=== PATIENT | female | born 1980 | race Caucasian/White ===

== ENCOUNTER 2020-01-01 09:19 | Emergency (ER) | payer BC, OTHER ==
[~2020-01-01] VITALS: Ht 160 cm; Wt 60.6 kg
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
--- NOTE | 2020-01-01 10:30 | NUR ---
STRAIGHT CATH COMPLETED AND SENT TO LAB
[2020-01-01 10:48] LABS: MICROSCOPIC NOT IND
[2020-01-01 10:53] LABS: CULTURE INDICATED? NO
[2020-01-01 12:06] VITALS: BP 101/60
== END 2020-01-01 12:09 | disposition home or self-care (01) ==
LOC: ED 11:45
DX: O20.0 Threatened abortion (principal); Z3A.13 13 weeks gestation of pregnancy
CPT/HCPCS: 36415; 76801; 81003; 84702; 86901; 99284

== ENCOUNTER 2020-04-22 07:32 | Outpatient (CLI) | payer BC ==
[~2020-04-22] VITALS: Ht 162.6 cm; Wt 70.0 kg
[2020-04-22 08:43] LABS: MICROSCOPIC INDICATED
[2020-04-22 09:12] VITALS: BP 118/60
== END 2020-04-22 09:10 | disposition home or self-care (01) ==
LOC: LDOP 07:32
PROVIDERS: ATTEND Obstetrics & Gynecology
DX: O26.893 Other specified pregnancy related conditions, third trimester (principal); R10.9 Unspecified abdominal pain; M54.5 Low back pain; Z3A.29 29 weeks gestation of pregnancy
CPT/HCPCS: 59025; 81001; 87086; 99211; G0463

== ENCOUNTER 2020-06-19 08:54 | Outpatient (CLI) | payer BC ==
[~2020-06-19] VITALS: Ht 160 cm; Wt 76.3 kg
[2020-06-19 08:56] VITALS: BP 118/60
== END 2020-06-19 09:40 | disposition home or self-care (01) ==
LOC: LDOP 08:54
PROVIDERS: ATTEND Obstetrics & Gynecology
DX: O09.523 Supervision of elderly multigravida, third trimester (principal); Z3A.37 37 weeks gestation of pregnancy
CPT/HCPCS: 59025

== ENCOUNTER 2020-06-25 21:01 | Outpatient (CLI) | payer BC ==
[~2020-06-25] VITALS: Ht 160 cm; Wt 75.0 kg
[2020-06-25 21:10] VITALS: BP 114/60
== END 2020-06-25 22:20 | disposition home or self-care (01) ==
LOC: LDOP 21:01
PROVIDERS: ATTEND Obstetrics & Gynecology
DX: O36.8130 Decreased fetal movements, third trimester, not applicable or unspecified (principal); Z3A.38 38 weeks gestation of pregnancy
CPT/HCPCS: 59025

== ENCOUNTER 2020-06-26 20:27 | Inpatient (IN) | payer BC ==
[~2020-06-26] VITALS: Ht 160 cm; Wt 75.0 kg
[2020-06-26] MEDS: LACTATED RINGERS 1,000 ML IV SCH (20:55)
[2020-06-26] MEDS ORDERED: OXYTOCIN 30U/ 0.9% NaCL 500ML 500 ML IV ONE (20:55)
[2020-06-26] MEDS ORDERED: OXYTOCIN 30U/ 0.9% NaCL 500ML 500 ML IV PRN (20:55)
[2020-06-26] MEDS ORDERED: D5%-LACTATED RINGERS 1,000 ML IV SCH (20:55)
[2020-06-26] MEDS ORDERED: TERBUTALINE 1 MG/ML, 1ML IVPush PRN (21:00)
[2020-06-26] MEDS ORDERED: SODIUM CITRATE/CITRIC ACID 30 ML UDC PO PRN (21:00)
[2020-06-26] MEDS ORDERED: TERBUTALINE 1 MG/ML, 1ML SQ PRN (21:00)
[2020-06-26] MEDS ORDERED: CALCIUM CARBONATE 500 MG TAB.CHEW PO PRN (21:00)
[2020-06-26] MEDS ORDERED: FENTANYL PF 100 MCG/2ML IV PRN (21:00)
[2020-06-26] MEDS ORDERED: ONDANSETRON 2MG/ML, 2ML IVPush PRN (21:00)
[2020-06-26] MEDS ORDERED: METOCLOPRAMIDE 5 MG/ML, 2ML IVPush PRN (21:00)
[2020-06-26 21:15] VITALS: BP 114/59
[2020-06-26] MEDS ORDERED: NEWBORN KIT ONE (21:26)
[2020-06-26] MEDS ORDERED: LIDOCAINE 1%, 20ML ONE (21:26)
[2020-06-26] MEDS ORDERED: OXYTOCIN 30U/ 0.9% NaCL 500ML 500 ML ONE (21:27)
[2020-06-26] MEDS ORDERED: MISOPROSTOL 200 MCG TABLET ONE (21:27)
[2020-06-26] MEDS ORDERED: PLEASE ENTER HEIGHT AND WEIGHT MC SCH (21:30)
[2020-06-26 21:34] LABS: BASOPHILS # (AUTO) 0.04 x10^3/uL (0-0.1); BASOPHILS % (AUTO) 1 % (0-1); EOSINOPHILS # (AUTO) 0.08 x10^3/uL (0-0.4); EOSINOPHILS % (AUTO) 1 % (1-7); LYMPHOCYTES # (AUTO) 1.19 x10^3/uL (1-3.4); LYMPHOCYTES % (AUTO) 14 % (22-44); MD NO; MEAN CORPUSCULAR HEMOGLOBIN 31.7 pg (27.0-34.8); MEAN CORPUSCULAR HGB CONC 34.3 g/dL (32.4-35.8); MEAN CORPUSCULAR VOLUME 92.4 fL (80-100); MEAN PLATELET VOLUME 8.3 fL (7.4-10.4); MONOCYTES # (AUTO) 0.85 x10^3/uL (0.2-0.8); MONOCYTES % (AUTO) 10 % (2-9); NEUTROPHILS # (AUTO) 6.25 x10^3/uL (1.8-6.8); NEUTROPHILS % (AUTO) 74 % (42-75); PLATELET COUNT 267 x10^3/uL (130-400); RED BLOOD COUNT 4.12 x10^6/uL (3.82-5.3); RED CELL DISTRIBUTION WIDTH 14.1 % (9.6-15.2)
[2020-06-27] MEDS ORDERED: FENTANYL PF 100 MCG/2ML ONE ×3 (00:20→02:45)
[2020-06-27] MEDS ORDERED: CALCIUM CARBONATE 500 MG TAB.CHEW ONE (00:20)
[2020-06-27] MEDS: FENTANYL PF 100 MCG/2ML IVPush PRN ×3 (00:23→02:49)
[2020-06-27] MEDS: LACTATED RINGERS 1,000 ML IV SCH (01:50)
[2020-06-27] MEDS ORDERED: FENTANYL/BUPIV./NS/PF 250 ML EPIDCONT ONE (02:45)
[2020-06-27] MEDS ORDERED: EPHEDRINE 50 MG/ML, 1ML IVPush PRN (03:30)
[2020-06-27] MEDS ORDERED: LACTATED RINGERS 1,000 ML IVBOLUS PRN (03:30)
[2020-06-27] MEDS ORDERED: FENTANYL/BUPIV./NS/PF 250 ML EPIDCONT SCH (03:30)
[2020-06-27] MEDS ORDERED: LACTATED RINGERS 1,000 ML IV SCH (03:30)
[2020-06-27] MEDS ORDERED: OXYTOCIN 30U/ 0.9% NaCL 500ML 500 ML IV SCH (05:03)
[2020-06-27] MEDS ORDERED: RHOGAM FROM BLOOD BANK 1 NOTE EA IM/IV ONE (05:30)
[2020-06-27] MEDS ORDERED: MISOPROSTOL 200 MCG TABLET PR PRN (05:30)
[2020-06-27] MEDS ORDERED: BISACODYL 10 MG SUPP PR PRN (05:30)
[2020-06-27] MEDS ORDERED: ONDANSETRON 2MG/ML, 2ML IV PRN (05:30)
[2020-06-27] MEDS ORDERED: ACETAMINOPHEN 325 MG TABLET PO PRN (05:30)
[2020-06-27] MEDS ORDERED: HYDROcodone/APAP 5/325 TABLET PO PRN (05:30)
[2020-06-27] MEDS ORDERED: OXYTOCIN 30U/ 0.9% NaCL 500ML 500 ML ONE (05:48)
[2020-06-27] MEDS ORDERED: IBUPROFEN 600 MG TABLET ONE (07:09)
[2020-06-27] MEDS ORDERED: OXYcodone/APAP 5/325MG TABLET ONE (07:09)
[2020-06-27] MEDS ORDERED: IBUPROFEN 800 MG TABLET ONE (07:12)
[2020-06-27] MEDS: IBUPROFEN 800 MG TABLET PO PRN ×2 (07:13→15:43)
[2020-06-27] MEDS: OXYcodone/APAP 5/325MG TABLET PO PRN ×7 (07:14→20:15)
[2020-06-27 07:40] VITALS: BP 101/4
[2020-06-27] MEDS: DOCUSATE 100 MG CAPSULE PO PRN ×2 (08:24→20:15)
[2020-06-27] MEDS: PRENATAL VIT/IRON/FA 1 EACH TABLET PO SCH (08:24)
[2020-06-27 11:55] VITALS: BP 95/58
[2020-06-27 12:22] LABS: BASOPHILS # (AUTO) 0.01 x10^3/uL (0-0.1); BASOPHILS % (AUTO) 0 % (0-1); EOSINOPHILS # (AUTO) 0.02 x10^3/uL (0-0.4); EOSINOPHILS % (AUTO) 0 % (1-7); LYMPHOCYTES # (AUTO) 0.72 x10^3/uL (1-3.4); LYMPHOCYTES % (AUTO) 7 % (22-44); MD NO; MEAN CORPUSCULAR HEMOGLOBIN 31.5 pg (27.0-34.8); MEAN CORPUSCULAR HGB CONC 33.7 g/dL (32.4-35.8); MEAN CORPUSCULAR VOLUME 93.4 fL (80-100); MEAN PLATELET VOLUME 8.4 fL (7.4-10.4); MONOCYTES # (AUTO) 0.49 x10^3/uL (0.2-0.8); MONOCYTES % (AUTO) 5 % (2-9); NEUTROPHILS # (AUTO) 9.71 x10^3/uL (1.8-6.8); NEUTROPHILS % (AUTO) 89 % (42-75); PLATELET COUNT 200 x10^3/uL (130-400); RED BLOOD COUNT 3.69 x10^6/uL (3.82-5.3); RED CELL DISTRIBUTION WIDTH 14.2 % (9.6-15.2)
[2020-06-27 15:45] VITALS: BP 103/62
[2020-06-27 20:00] VITALS: BP 109/73
[2020-06-28] VITALS: BP 106/69
[2020-06-28] MEDS: IBUPROFEN 800 MG TABLET PO PRN ×3 (00:38→17:46)
[2020-06-28] MEDS: OXYcodone/APAP 5/325MG TABLET PO PRN ×6 (00:38→21:51)
[2020-06-28 07:40] VITALS: BP 84/51
[2020-06-28] MEDS: PRENATAL VIT/IRON/FA 1 EACH TABLET PO SCH (08:32)
[2020-06-28] MEDS: DOCUSATE 100 MG CAPSULE PO PRN ×2 (08:33→21:50)
[2020-06-28 13:07] VITALS: BP 118/69
[2020-06-28 20:15] VITALS: BP 117/73
[2020-06-29] MEDS: OXYcodone/APAP 5/325MG TABLET PO PRN ×2 (01:58→06:41)
[2020-06-29] MEDS: IBUPROFEN 800 MG TABLET PO PRN ×2 (01:58→09:50)
[2020-06-29] MEDS ORDERED: IBUP-1222 PO (08:12)
[2020-06-29] MEDS ORDERED: DOCU-131 PO (08:13)
[2020-06-29 09:00] VITALS: BP 102/67
[2020-06-29] MEDS: PRENATAL VIT/IRON/FA 1 EACH TABLET PO SCH (09:00)
== END 2020-06-29 11:30 | disposition home or self-care (01) | DRG 807 ==
LOC: LDOP 20:27 → LDIP 21:12 → 2NW 06-27 07:32
PROVIDERS: ADMIT Obstetrics & Gynecology; ATTEND Obstetrics & Gynecology
PROC: 0KQM0ZZ Repair Perineum Muscle, Open Approach (ICD-10-PCS; principal; 2020-06-27)
PROC: 10E0XZZ Delivery of Products of Conception, External Approach (ICD-10-PCS; 2020-06-27)
PROC: 3E0R3BZ Introduction of Anesthetic Agent into Spinal Canal, Percutaneous Approach (ICD-10-PCS; 2020-06-27)
PROC: 00HU33Z Insertion of Infusion Device into Spinal Canal, Percutaneous Approach (ICD-10-PCS; 2020-06-27)
DX: O99.52 Diseases of the respiratory system complicating childbirth (principal); Z37.0 Single live birth; O69.1XX0 Labor and delivery complicated by cord around neck, with compression, not applicable or unspecified; O70.1 Second degree perineal laceration during delivery; O36.8330 Maternal care for abnormalities of the fetal heart rate or rhythm, third trimester, not applicable or unspecified; O76 Abnormality in fetal heart rate and rhythm complicating labor and delivery; O36.8130 Decreased fetal movements, third trimester, not applicable or unspecified; J45.909 Unspecified asthma, uncomplicated; Z88.8 Allergy status to other drugs, medicaments and biological substances; Z3A.38 38 weeks gestation of pregnancy; Z88.5 Allergy status to narcotic agent
CPT/HCPCS: 36415; 82962; 85025; 86592; 86850; 86900; G0378; J3010; J2590; J7120